=== PATIENT | female | born 1945 | race Caucasian/White ===

== ENCOUNTER 2024-03-11 11:08 | Outpatient (CLI) | payer MEDICARE | END 2024-03-11 11:09 | disposition home or self-care (01) | LOC: CSHLAB 11:08 | PROVIDERS: ATTEND Obstetrics & Gynecology | DX: Z01.812 Encounter for preprocedural laboratory examination (principal); N81.6 Rectocele | CPT/HCPCS: 85027; 86850; 86900; 86901 ==

== ENCOUNTER 2024-03-15 05:51 | Day surgery (SDC) | payer MEDICARE ==
[2024-03-11 11:51] LABS: Hematocrit 37.5 % (34.9-44.5); Hemoglobin 11.8 g/dL (12.0-15.5); Mean Corpuscular HGB CONC 31.5 g/dL (32.0-36.0); Mean Corpuscular Hemoglobin 30.2 pg (27.0-33.0); Mean Corpuscular Volume 95.9 fL (81.6-98.3); Platelet Count 365 10x3/uL (150-450); RBC Distribution Width 12.2 % (11.5-14.5); Red Blood Cell (RBC) Count 3.91 10x6/uL (3.90-5.03); White Blood Cell (WBC) Count 6.5 10x3/uL (3.5-10.5)
[2024-03-11 12:12] VITALS: BMI 26.2
[2024-03-15] MEDS ORDERED: Gabapentin 300 MG CAP ONE (06:16)
[2024-03-15] MEDS ORDERED: CeleCOXIB 100 MG CAP ONE (06:16)
[2024-03-15] MEDS ORDERED: Famotidine/PF 20 mg/2ml Vial ONE (06:17)
[2024-03-15] MEDS ORDERED: PROPOFOL 20 ML ONE (06:41)
[2024-03-15] MEDS ORDERED: SUGAMMADEX SODIUM 200 MG/2 ML VIAL ONE (06:42)
[2024-03-15] MEDS ORDERED: Ondansetron PF 4 MG/2 ML Vial ONE ×2 (06:42→10:59)
[2024-03-15] MEDS ORDERED: Rocuronium Bromide 10 MG/ML (10ML VIAL) ONE (06:42)
[2024-03-15] MEDS ORDERED: Dexamethasone 4 mg/ml Vial ONE ×2 (06:42→07:59)
[2024-03-15] MEDS ORDERED: Lidocaine 1% PF 5 ML VIAL ONE (06:42)
[2024-03-15] MEDS ORDERED: fentaNYL 50 mcg/mL 1 mL Vial ONE (06:54)
[2024-03-15] MEDS ORDERED: Lidocaine 1% w/Epinephrine 1:200K 30 ML VIAL ONE (06:59)
[2024-03-15] MEDS ORDERED: CEFAZOLIN 2 GM VIAL ONE (07:16)
[2024-03-15] MEDS ORDERED: SUCCINYLCHOLINE/SOD CL,ISO/PF 200 MG/10 ML SYRINGE FS ONE (07:33)
[2024-03-15] MEDS ORDERED: ePHEDrine Sulfate 50 MG/10 ML VIAL ONE (07:54)
== END 2024-03-15 14:05 | disposition home or self-care (01) ==
LOC: CSHSDC 05:51
PROVIDERS: ATTEND Obstetrics & Gynecology
PROC: 0JQC0ZZ Repair Pelvic Region Subcutaneous Tissue and Fascia, Open Approach (ICD-10-PCS; principal; 2024-03-15)
DX: N81.6 Rectocele (principal); Z90.710 Acquired absence of both cervix and uterus; Z90.89 Acquired absence of other organs; Z98.49 Cataract extraction status, unspecified eye; Z78.0 Asymptomatic menopausal state; Z79.899 Other long term (current) drug therapy
CPT/HCPCS: 57250; 85027; 86850; 86900; 86901; J1100; J2405; J2704; J3010; J3490